=== PATIENT | male | born 1930 | race Caucasian/White ===

== ENCOUNTER 2018-04-22 15:18 | Inpatient (IN) | payer MEDICARE, MEDICAID ==
[2018-04-22] MEDS ORDERED: Sodium Chloride 0.9% 1,000 ML IV ONE (15:47)
[2018-04-22 16:23] LABS: % BASOPHILS 0.4 % (0.0-2.0); % EOSINOPHILS 0.6 % (0.0-5.0); % LYMPHOCYTES 5.1 % (20.0-50.0); % MONOCYTES 4.4 % (2.0-10.0); % NEUTROPHILS 89.5 % (40.0-80.0); BASOPHILE ABSOLUTE 0.1 Th/cumm (0-0.2); EOSINOPHILE ABSOLUTE 0.1 Th/cmm (0.1-0.4); HEMATOCRIT 36.3 % (41.0-60); LYMPHOCYTE ABSOLUTE 0.8 Th/cmm (1.5-3.0); MEAN CELL VOLUME 82.5 fl (80-99); MEAN CORPUSCULAR HEMOGLOBIN 27.4 pg (27.0-31.0); MEAN CORPUSCULAR HGB CONC 33.2 pg (28.0-36.0); MEAN PLATELET VOLUME 6.9 fl; MONOCYTE ABSOLUTE 0.7 Th/cmm (0.3-1.0); NEUTROPHILE ABSOLUTE 13.4 Th/cmm (1.8-8.0); PLATELET COUNT 519 Th/cmm (150-400); RED BLOOD COUNT 4.39 Mil/cmm (3.80-5.80); RED CELL DISTRIBUTION WIDTH 13.5 % (11.5-20.0)
[2018-04-22 16:29] LABS: WHITE BLOOD COUNT 15.1 Th/cmm (4.8-10.8)
--- NOTE | 2018-04-22 16:29 | ED Physician Chart ---
ED Chief Complaint/HPI - Patient Information Date Seen:: 04/22/18 Time Seen:: 15:45 Chief Complaint:: Hematochezia History of Present Illness:: onset x 2 days of hemtochezia, melena, and rectal pain; no report of trauma, H/ As, S/T, neck pain, cough, C/P, SOB, Abd. pain, A/N/V/D/C, fever, chills, hematemesis, or urinary s/s Allergies:: Allergies Allergy/AdvReac Type Severity Reaction Status Date / Time No Known Allergies Allergy Verified 04/22/18 15:44 Vitals:: Vital Signs - 8 hr 04/22/18 15:45 Temp 98.2 F HR 96 RR 16 BP 109/64 O2 Sat % 96 Historian:: Patient, Family Member Review:: Nurse's Note Reviewed, Old Chart Reviewed ED Review of Systems - Review of Systems General/Constitutional: No fever, No chills, No weight loss, No weakness, No diaphoresis, No edema, No loss of appetite Skin: No skin lesions, No rash, No bruising Head: No headache, No light-headedness Eyes: No loss of vision, No pain, No diplopia ENT: No earache, No nasal drainage, No sore throat, No tinnitus Neck: No neck pain, No swelling, No thyromegaly, No stiffness, No mass noted Cardio Vascular: No chest pain, No palpitations, No PND, No orthopnea, No edema Pulmonary: No SOB, No cough, No sputum, No wheezing GI: No nausea, No vomiting, No diarrhea, No pain, Melena, Hematochezia, No constipation, No hematemesis G/U: No dysuria, No frequency, No hematuria Musculoskeletal: No bone or joint pain, No back pain, No muscle pain Endocrine: No polyuria, No polydipsia Psychiatric: No prior psych history, No depression, No anxiety, No suicidal ideation, No homicidal ideation, No auditory hallucination, No visual hallucination Hematopoietic: No bruising, No lymphadenopathy Allergic/Immuno: No urticaria, No angioedema Neurological: No syncope, No focal symptoms, No weakness, No paresthesia, No headache, No seizure, No dizziness, No confusion, No vertigo ED Past Medical History - Past Medical History Obtainable: Yes Past Medical History: HTN, PUD/GERD Family History: HTN Social History: Non Smoker, No Alcohol, No Drug Use, Surgical History: None Psychiatricy History: None Medication: Reviewed ED Physical Exam - Physical Examination General/Constitutional: Awake, Well-developed, well-nourished, Alert, No distress, GCS 15, Non-toxic appearing, Ambulatory Head: Atraumatic Eyes: Lids, conjuctiva normal, PERRL, EOMI Skin: Nl inspection, No rash, No skin lesions, No ecchymosis, Well hydrated, No lymphadenopathy ENMT: External ears, nose nl, TM canals nl, Nasal exam nl, Lips, teeth, gums nl , Oropharynx nl, Tonsils nl Neck: Nontender, Full ROM w/o pain, No JVD, No nuchal rigidity, No bruit, No mass, No stridor Respiratory: Nl effort/Exclusion, Clear to Auscultation, No Wheeze/Rhonchi/Rales Cardio Vascular: RRR, No murmur, gallop, rubs, NL S1 S2, Carotid/Femoral/Distal pulses equal bilaterally GI: No tenderness/rebounding/guarding, No organomegaly, No hernia, Normal BS's, Nondistended, No mass/bruits, No McBurney tenderness Other GI comments:: + Hematochezia; no pulsatile masses; good BS : No CVA tenderness Extremities: No tenderness or effusion, Full ROM, normal strength in all extremities, No edema, Normal digits & nails Neuro/Psych: Alert/oriented, DTR's symmetric, Normal sensory exam, Normal motor strength, Judgement/insight normal, Mood normal, Normal gait, No focal deficits Misc: Normal back, No paraspinal tenderness ED Labs/Radiology/EKG Results - Lab Results Results: Reviewed - Radiology Results Comments:: NAD - EKG Interpretations EKG Time:: 16:20 Rate & Rhythm: 94; NSR Comments:: non-specific st-t changes ED Septic Shock - . Is Septic Shock (SBP<90, OR Lactate>4 mmol\L) present?: No - <6hrs of presentation: Vital Signs: Vital Signs - 8 hr 04/22/18 15:45 Temp 98.2 F HR 96 RR 16 BP 109/64 O2 Sat % 96 ED Reassessment (Disposition) - Reassessment Reassessment Condition:: Improved - Diagnosis Diagnosis:: Dx: Hematochezia; Rectal Pain; Melena; GI Bleed - Aftercare/Follow up Instructions Aftercare/Follow-Up Instructions:: Counseled pt regarding lab results/diagnosis & need follow up, Counseled pt & family regarding lab results/diagnosis & need follow up - Patient Disposition Discharge/Transfer:: Acute Care w/in this hosp Accepting Physician:: Dr. Wilson Time Called:: [id number] Time Responded:: 16:15 Admitted to:: Telemetry Spoke to:: Dr. Wilson Admitting Medical Physician:: Dr. Wilson Condition at Disposition:: Stable, Improved
[2018-04-22 17:13] LABS: INR 1.02 (0.5-1.4); PROTHROMBIN TIME (TEST) 10.6 SECONDS (9.5-11.5)
[2018-04-22] MEDS ORDERED: Morphine Sulfate 2 mg/mL 1mL Syr IVP PRN (17:42)
[2018-04-22] MEDS ORDERED: Morphine Sulfate 2 mg/mL 1mL Syr ONE (17:47)
[2018-04-22 18:00] LABS: AMYLASE SERUM 48 U/L (29-103)
[2018-04-22] MEDS: Morphine Sulfate 2 mg/mL 1mL Syr IVP PRN (18:00)
[2018-04-22 18:02] LABS: ALBUMIN 2.7 gm/dL (4.2-5.5); ALKALINE PHOSPHATASE 75 U/L (34-104); ANION GAP 15.3 (7.0-16.0); BILIRUBIN,TOTAL 0.4 mg/dL (0.3-1.0); BUN - UREA NITROGEN 17 mg/dL (7-25); CALCIUM SERUM 8.3 mg/dL (8.6-10.3); CARBON DIOXIDE 21.6 mEq/L (21.0-31.0); CHLORIDE 101 mEq/L (98-107); CHOLESTEROL 96 mg/dL (<200); CREATININE - SERUM 0.5 mg/dL (0.7-1.3); CREATININE KINASE 49 U/L (30-223); GLUCOSE 94 mg/dL (70-105); HDL -HIGH DENSITY LIPOPROTEIN 48 mg/dL (23-92); LIPASE < 3 U/L (11-82); POTASSIUM SERUM 3.9 mEq/L (3.5-5.1); SGOT 10 U/L (13-39); SGPT/ALT 10 U/L (7-52); SODIUM SERUM 134 mEq/L (136-145); TOTAL PROTEIN,SERUM 5.5 gm/dL (6.0-8.3); TRIGLYCERIDES 77 mg/dL (<150)
[2018-04-22] MEDS ORDERED: Sodium Chloride 0.9% 1,000 ML IV SCH (20:00)
[2018-04-22] MEDS: Anusol Supp RC SCH (20:57)
[2018-04-22] MEDS ORDERED: HYDROmorphone 1 mg/mL 1mL Syr IVP PRN (21:33)
[2018-04-22] MEDS: D5-0.9%NS 1,000 ML IV SCH (21:48)
[2018-04-22] MEDS: HYDROmorphone 2 mg/mL 1mL Vial IVP PRN (21:48)
[2018-04-23 00:31] VITALS: BP 139/86
[2018-04-23] MEDS: HYDROmorphone 2 mg/mL 1mL Vial IVP PRN ×4 (01:40→21:08)
[2018-04-23 07:23] LABS: HEMATOCRIT 40.9 % (41.0-60); HEMOGLOBIN 13.4 gm/dL (12-16); MEAN CORPUSCULAR HEMOGLOBIN 26.8 pg (27.0-31.0); MEAN CORPUSCULAR HGB CONC 32.7 pg (28.0-36.0); MEAN PLATELET VOLUME 7.9 fl; PLATELET COUNT 463 Th/cmm (150-400); RED BLOOD COUNT 4.99 Mil/cmm (3.80-5.80)
[2018-04-23 07:45] LABS: BAND NEUTROPHILE 16 % (0-10); BASOPHIL 0 % (0-3); EOSINOPHIL 0 % (0-5); LYMPHOCYTE 2 % (20-50); MONOCYTE 1 % (2-10); NEUTROPHILS 81 % (40-80)
[2018-04-23 07:51] LABS: ANION GAP 14.3 (7.0-16.0); BUN - UREA NITROGEN 17 mg/dL (7-25); CALCIUM SERUM 8.7 mg/dL (8.6-10.3); CHLORIDE 102 mEq/L (98-107); CREATININE - SERUM 0.5 mg/dL (0.7-1.3); GLUCOSE 117 mg/dL (70-105); POTASSIUM SERUM 3.3 mEq/L (3.5-5.1); SODIUM SERUM 136 mEq/L (136-145)
[2018-04-23] MEDS ORDERED: Anusol Supp RC SCH (09:00)
--- NOTE | 2018-04-23 09:12 | Diagnostic Imaging Report ---
CT abdomen and pelvis without intravenous contrast Indication: Abdominal pain, GI bleed Comparison: None, Technique: Axial images were obtained from the lung bases to the bilateral proximal femurs without IV contrast. Coronal reconstructions were made. total DLP: 459, CTDI10.4 FINDINGS: Bibasal infiltrates are noted. Hyperinflation of the lung bases are noted. There is a moderate-sized hiatal hernia. Assessment of the solid organs is limited due to lack of IV contrast. Exam is also limited due to body habitus. Limited assessment of the liver demonstrates no obvious focal lesions. No splenic lesions. Splenic hilar vascular calcifications are noted. There is poor is dilation of the pancreas. There is also poor visualization of the adrenal glands. Bilateral nonobstructive renal calculi are noted right greater than left the largest on the right side measuring 5 mm. No hydronephrosis. Bilateral renal cysts are noted the largest within the left kidney measuring 2.8 cm along the lower pole. Additional low-density lesions are seen to small to characterize. Sanders catheter is seen surrounding the urinary bladder with urinary bladder wall thickening. There are small pockets of gas along the left urinary bladder wall. There is a moderate-sized hiatal hernia. There is massive amount of stool throughout the colon with diffuse gaseous distention of loops of bowel. The appendix is not visualized. No free fluid or free air. Moderate atherosclerosis is noted. Anasarca is noted. Degenerative changes of the spine are noted. Chronic appearing right lower rib fractures are noted. IMPRESSION: Limited exam due to lack of IV and oral contrast and the body habitus. There is massive amount of stool throughout the colon with diffuse gaseous filled loops of bowel. Please correlate clinically for constipation and ileus. Moderate sized hiatal hernia Sanders catheter within underdistended urinary bladder. There is diffuse urinary bladder wall thickening. There are small pockets of gas are seen along the left side which may be along the less likely within the urinary bladder wall. This may be due to instrumentation, however, infectious or inflammatory process cannot be excluded. Please correlate clinically. Bilateral renal stones right greater than left. No hydronephrosis. bilateral renal cysts. Anasarca Atherosclerotic vascular disease.
[2018-04-23] MEDS: Anusol Supp RC SCH ×2 (09:16→16:41)
--- NOTE | 2018-04-23 09:19 | General Progress Note ---
Subjective - Review of Systems Service Date: 04/23/18 Events since last encounter: 04/23/[address] scan prelim noted PE:sacral ulcers, external hemorrhoids with lax sphincter, no blood in stool Need GI eval Objective - Results Result Diagrams: 04/23/18 06:30 04/23/18 06:30 Recent Labs: Laboratory Last Values WBC 22.0 Th/cmm (4.8-10.8) H* 04/23/18 06:30 RBC 4.99 Mil/cmm (3.80-5.80) 04/23/18 06:30 Hgb 13.4 gm/dL (12-16) 04/23/18 06:30 Hct 40.9 % (41.0-60) L 04/23/18 06:30 MCV 82.0 fl (80-99) 04/23/18 06:30 MCH 26.8 pg (27.0-31.0) L 04/23/18 06:30 MCHC Differential 32.7 pg (28.0-36.0) 04/23/18 06:30 RDW 14.0 % (11.5-20.0) 04/23/18 06:30 Plt Count 463 Th/cmm (150-400) H 04/23/18 06:30 MPV 7.9 fl 04/23/18 06:30 Add Manual Diff YES 04/23/18 06:30 Neutrophils % 89.5 % (40.0-80.0) H 04/22/18 16:20 Band Neutrophils % 16 % (0-10) H 04/23/18 06:30 Lymphocytes % 5.1 % (20.0-50.0) L 04/22/18 16:20 Monocytes % 4.4 % (2.0-10.0) 04/22/18 16:20 Eosinophils % 0.6 % (0.0-5.0) 04/22/18 16:20 Basophils % 0.4 % (0.0-2.0) 04/22/18 16:20 Neutrophils (Manual) 81 % (40-80) H 04/23/18 06:30 Lymphocytes 2 % (20-50) L 04/23/18 06:30 Monocytes 1 % (2-10) L 04/23/18 06:30 Eosinophils 0 % (0-5) 04/23/18 06:30 Basophils 0 % (0-3) 04/23/18 06:30 PT 10.6 SECONDS (9.5-11.5) 04/22/18 16:20 INR 1.02 (0.5-1.4) 04/22/18 16:20 PTT (Actin FS) 30.5 SECONDS (26.0-38.0) 04/23/18 06:30 Sodium 136 mEq/L (136-145) 04/23/18 06:30 Potassium 3.3 mEq/L (3.5-5.1) L 04/23/18 06:30 Chloride 102 mEq/L (98-107) 04/23/18 06:30 Carbon Dioxide 23.0 mEq/L (21.0-31.0) 04/23/18 06:30 Anion Gap 14.3 (7.0-16.0) 04/23/18 06:30 BUN 17 mg/dL (7-25) 04/23/18 06:30 Creatinine 0.5 mg/dL (0.7-1.3) L 04/23/18 06:30 Est GFR ( Amer) TNP 04/23/18 06:30 Est GFR (Non-Af Amer) TNP 04/23/18 06:30 BUN/Creatinine Ratio 34.0 04/23/18 06:30 Glucose 117 mg/dL (70-105) H 04/23/18 06:30 Whole Bld Lactic Acid 0.61 mmol/L (0.60-1.99) 04/22/18 19:30 Calcium 8.7 mg/dL (8.6-10.3) 04/23/18 06:30 Total Bilirubin 0.4 mg/dL (0.3-1.0) 04/22/18 16:20 AST 10 U/L (13-39) L 04/22/18 16:20 ALT 10 U/L (7-52) 04/22/18 16:20 Alkaline Phosphatase 75 U/L (34-104) 04/22/18 16:20 Creatine Kinase 49 U/L (30-223) 04/22/18 16:20 Troponin I 0.01 ng/mL (0.01-0.05) 04/22/18 16:20 B-Natriuretic Peptide 75.5 pg/mL (5.0-100.0) 04/22/18 16:20 Total Protein 5.5 gm/dL (6.0-8.3) L 04/22/18 16:20 Albumin 2.7 gm/dL (4.2-5.5) L 04/22/18 16:20 Globulin 2.8 gm/dL 04/22/18 16:20 Albumin/Globulin Ratio 1.0 (1.0-1.8) 04/22/18 16:20 Triglycerides 77 mg/dL (<150) 04/22/18 16:20 Cholesterol 96 mg/dL (<200) 04/22/18 16:20 LDL Cholesterol Direct 42 mg/dL (75-193) L 04/22/18 16:20 HDL Cholesterol 48 mg/dL (23-92) 04/22/18 16:20 Amylase 48 U/L (29-103) 04/22/18 16:20 Lipase < 3 U/L (11-82) L 04/22/18 16:20 - Physical Exam Vitals and I&O: Vital Signs Temp 97.4 F 04/23/18 08:24 Pulse 101 04/23/18 08:24 Resp 18 04/23/18 08:24 BP 127/71 04/23/18 08:24 Pulse Ox 98 04/23/18 08:24 Intake & Output 04/22/18 04/23/18 04/23/18 18:59 06:59 18:59 Intake Total 0 150 Output Total 0 450 Balance 0 -300 Weight (lbs) 61.235 kg 58.967 kg Intake: Intake, IV Amount 0 Sodium Chloride 0.9% 1, 0 000 ml @ 100 mls/hr IV . Q10H [facility] Rx#:[id number] Sodium Chloride 0.9% 1, 0 000 ml @ 100 mls/hr IV . Q10H [facility] Rx#:[id number] Vancomycin HCl 1 gm In 0 Sodium Chloride 0.9% 250 ml @ 165 mls/hr IV Q24H [facility] Rx#:[id number] Oral 0 150 Output: Urine 0 450 Other: # Bowel Movements 5 Stool Characteristics Soft Weight Source Estimated Bedscale Active Medications: Current Medications Hydromorphone HCl (Dilaudid) 1 mg IVP Q4HR PRN PRN Reason: Pain (Moderate) Stop: 01/19/19 21:32 Hydromorphone HCl (Dilaudid) 2 mg IVP Q4HR PRN PRN Reason: Pain (Severe) Stop: 06/21/18 21:34 Last Admin: 04/23/18 09:16 Dose: 2 mg Dextrose/Sodium Chloride (D5-0.9%Ns) 1,000 mls @ 50 mls/hr IV .Q20H [facility] Stop: 06/21/18 21:36 Last Admin: 04/22/18 21:48 Dose: 50 mls/hr Vancomycin HCl 1.25 gm/ Sodium (Chloride) 250 mls @ 165 mls/hr IV Q24H [facility] Stop: 06/22/18 08:59 Potassium Chloride 20 meq/ (Sodium Chloride) 260 mls @ 130 mls/hr IV X1 [facility] Stop: 04/23/18 10:49 Last Admin: 04/23/18 09:13 Dose: 130 mls/hr Miscellaneous (Vancomycin Iv Per Pharmacy) 1 ea MC PRN PRN PRN Reason: PROTOCOL Stop: 06/21/18 17:03 Morphine Sulfate (Morphine) 1 mg IVP Q4HR PRN PRN Reason: Pain (Moderate) 4-7 Stop: 06/21/18 17:41 Morphine Sulfate (Morphine) 2 mg IVP Q4HR PRN PRN Reason: Pain (Severe) 8-10 Stop: 06/21/18 17:43 Last Admin: 04/22/18 18:00 Dose: 2 mg Ondansetron HCl (Zofran) 4 mg IV Q6H PRN PRN Reason: Nausea / Vomiting Stop: 06/21/18 17:46 Last Admin: 04/23/18 09:16 Dose: 4 mg Starch (Anusol) 1 sup RC BID [facility] Stop: 06/21/18 20:59 Last Admin: 04/23/18 09:16 Dose: 1 sup Assessment/Plan - Problem List Patient Problems: All Active Problems RECTAL PAIN (Acute)
[2018-04-23] MEDS: POLYETHYLENE GLYCOL 3350 17 GM PACK PO SCH ×2 (10:43→16:41)
[2018-04-23] MEDS: Morphine Sulfate 2 mg/mL 1mL Syr IVP PRN (11:02)
--- NOTE | 2018-04-23 12:00 | Diagnostic Imaging Report ---
Bilateral lower extremity DVT study HISTORY: Pain COMPARISON: None Technique: Longitudinal and transverse sonographic images of the bilateral lower extremity veins were obtained with doppler analysis. FINDINGS: There is normal compressibility, augmentation and phasicity of the bilateral common femoral, superficial femoral, popliteal, and posterior tibial veins. No thrombus is visualized. IMPRESSION: No evidence of thrombus within the bilateral lower extremity veins.
--- NOTE | 2018-04-23 12:06 | Diagnostic Imaging Report ---
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 FINDINGS: Exam of the right side demonstrates triphasic flow extending from the right common femoral to the right tibialis anterior artery. There is biphasic flow in the right tibialis posterior and right dorsalis pedis arteries. Mild generalized atherosclerosis is noted. Due to patient's right PICC line, right brachial pressure and right ankle-brachial and were not able to be obtained. Exam of the left side demonstrates triphasic flow within the left common femoral artery and left superficial femoral artery. Biphasic and monophasic waveforms are seen more distally with decreased velocity and markedly dampened waveforms of the anterior tibialis and dorsalis pedis artery. Severe atherosclerosis is seen distally. Left DAMIEN were not able to obtain after multiple attempts. IMPRESSION: Severe left distal lower extremity atherosclerotic vascular disease with monophasic waveforms and decreased velocities. If indicated follow-up CT angiography of the lower extremity may be obtained for further assessment. Mild atherosclerosis on the right side.
--- NOTE | 2018-04-23 13:34 | Consultation ---
DATE OF CONSULTATION: 04/23/2018 INPATIENT GASTROINTESTINAL CONSULTATION CONSULTING PHYSICIAN: Dr. Wilson. REASON FOR CONSULTATION: Hematochezia. HISTORY OF PRESENT ILLNESS: The patient is an 88-year-old male with past medical history significant for hypertension and GERD, who comes into the hospital with 2 days of intermittent hematochezia. The patient reports that he has noted some red blood in his stool over the past 2 days and this alarmed him and thus he sought care in the Emergency Room. He denies any abdominal pain. He does report having a colonoscopy before, but he thinks this was many years ago and cannot remember exactly what the results were. He also reports feeling constipated at home and that he knows he has hemorrhoids. However, it should be noted that since his admission to the hospital, he has been having loose stool with no blood in it as per nursing staff. PAST MEDICAL HISTORY: Hypertension and GERD. PAST SURGICAL HISTORY: The patient denies any abdominal surgery. FAMILY HISTORY: Noncontributory. SOCIAL HISTORY: The patient does not smoke, drink or use illicit drugs. ALLERGIES: No known drug allergies. REVIEW OF SYSTEMS: A 12-point review of systems was performed with the patient and is negative other than the pertinent positives mentioned in the history of present illness. CURRENT MEDICATIONS: Include Dilaudid, vancomycin, morphine and Zofran. PHYSICAL EXAMINATION: VITAL SIGNS: Blood pressure is 127/71, pulse 101 beats per minute, temperature 97.4, oxygenation 98%. GENERAL: The patient is sitting upright in bed, alert and oriented x 3, no apparent distress. HEAD, EARS, EYES, NOSE AND THROAT: Normocephalic and atraumatic appearing head. Pupils are equal and reactive to light. Extraocular muscles are intact. Moist mucous membranes. NECK: Supple. No JVD, thyromegaly or lymphadenopathy. CHEST: Clear to auscultation bilaterally. CARDIOVASCULAR: S1 and S2 are present, regular rate and rhythm. ABDOMEN: Soft, nontender, no guarding, no rebound. No fluid distention. EXTREMITIES: No pitting edema. Pulses are not present. SKIN: There is no obvious jaundice. LABORATORY DATA: White blood cell count is 22, hemoglobin 13.4, platelet count is 463. INR is 1.02. Sodium 136, BUN 17, creatinine 0.5. Total bilirubin 0.4, AST 10, ALT 10, lipase less than 3. IMAGING: Abdomen and pelvis CT scan was performed without contrast, shows massive amount of stool throughout the colon with diffuse gaseous filled loops of bowel concerning for ileus and constipation, moderate size hiatal hernia. There is a Sanders catheter in place. IMPRESSION: This is an 88-year-old male with history of hypertension and gastroesophageal reflux disease, admitted to the hospital with intermittent hematochezia over the past several days, found to have constipation and ileus on CT imaging and external hemorrhoids. 1. Hematochezia. 2. Constipation. 3. Ileus problem. 4. External hemorrhoids on exam. DISCUSSION: I think the most likely etiology of the patient's bleeding is his hemorrhoid disease, which is obvious on physical exam. He does have a large amount of stool throughout the colon and likely this is contributing to the hemorrhoid disease. A colonoscopy is not unreasonable here to rule out other forms of rectal bleeding such as rectal cancer or colonic ulceration or polyps and I discussed this with the patient. We need to rule out C. diff before we do a colonoscopy; however, given that his white blood cell count is elevated and he is now having diarrhea and given the holiday schedule, ____ that a colonoscopy will be able to be scheduled not emergently until Saturday. RECOMMENDATIONS: 1. We will give the patient tap water enemas to try to clear some of the stool out from his colon as well as a strong bowel regimen. 2. Rule out C. diff. 3. Evaluation of the patient's leukocytosis for other forms of sepsis as per Dr. Wilson. 4. We can perform a colonoscopy here in the hospital, but this likely have to be on Saturday unless the patient has severe bleeding; otherwise, we can do this as an outpatient which is also not unreasonable. We will continue to follow the patient. Thank you for allowing us to participate in his care. Please call with any further questions. [facility]# [id number]
[2018-04-23] MEDS: Venelex 60gm Tube TP SCH (14:29)
--- NOTE | 2018-04-23 17:02 | History & Physical ---
ADMIT DATE: 04/22/2018 HISTORY OF PRESENT ILLNESS: This patient is very well known to me, elderly male patient. The patient is known to have history of multiple problems including history of hypertension, history of severe peripheral vascular disease, history of gangrene of the foot, history of peptic ulcer disease, history of GERD, history of COPD, complaining of intermittent hematochezia and melena, seen by Dr. Hernandez and was sent to the ER. The patient was admitted for rectal bleeding. The patient complained of no shortness of breath, no chest pain, but does complain of severe pain in both legs, worse on the left and also has blood in the stool and melenic stools as well. The patient has a history of hemorrhoids as well. PHYSICAL EXAMINATION: GENERAL: The patient is alert, oriented, emaciated male patient. VITAL SIGNS: As noted in chart. HEAD: Normal. ENT: Normal. LUNGS: Bilateral rales. Decreased breath sounds. CARDIOVASCULAR SYSTEM: S1, S2 heard. ABDOMEN: Soft, bilateral leg tenderness as well as some dry gangrene and the patient has had angioplasty of the leg before. DIAGNOSES: The patient was admitted for hematochezia, rectal pain, melena, lower gastrointestinal bleeding, peripheral vascular disease, status post angioplasty, history of hypertension, history of gastroesophageal reflux disease, history of peptic ulcer disease, and history of gangrene in the past. PLAN: The patient is being admitted. I will call the vascular surgeon as well as GI doctor. I will follow the patient. JOB# [id number]
[2018-04-24] MEDS: D5-0.9%NS 1,000 ML IV SCH (02:32)
[2018-04-24] MEDS: HYDROmorphone 2 mg/mL 1mL Vial IVP PRN ×3 (03:00→11:15)
[2018-04-24] MEDS: Ipratropium Neb 0.5 mg/2.5 mL UD HHN PRN ×2 (07:01→13:30)
--- NOTE | 2018-04-24 08:09 | GI Progress Note ---
Subjective - Review of Systems Service Date: 04/24/18 Subjective: No blood in stool, but has rectal pain and loose stool Objective - Results Result Diagrams: 04/23/18 06:30 04/23/18 06:30 Recent Labs: Laboratory Last Values WBC 22.0 Th/cmm (4.8-10.8) H* 04/23/18 06:30 RBC 4.99 Mil/cmm (3.80-5.80) 04/23/18 06:30 Hgb 13.4 gm/dL (12-16) 04/23/18 06:30 Hct 40.9 % (41.0-60) L 04/23/18 06:30 MCV 82.0 fl (80-99) 04/23/18 06:30 MCH 26.8 pg (27.0-31.0) L 04/23/18 06:30 MCHC Differential 32.7 pg (28.0-36.0) 04/23/18 06:30 RDW 14.0 % (11.5-20.0) 04/23/18 06:30 Plt Count 463 Th/cmm (150-400) H 04/23/18 06:30 MPV 7.9 fl 04/23/18 06:30 Add Manual Diff YES 04/23/18 06:30 Neutrophils % 89.5 % (40.0-80.0) H 04/22/18 16:20 Band Neutrophils % 16 % (0-10) H 04/23/18 06:30 Lymphocytes % 5.1 % (20.0-50.0) L 04/22/18 16:20 Monocytes % 4.4 % (2.0-10.0) 04/22/18 16:20 Eosinophils % 0.6 % (0.0-5.0) 04/22/18 16:20 Basophils % 0.4 % (0.0-2.0) 04/22/18 16:20 Neutrophils (Manual) 81 % (40-80) H 04/23/18 06:30 Lymphocytes 2 % (20-50) L 04/23/18 06:30 Monocytes 1 % (2-10) L 04/23/18 06:30 Eosinophils 0 % (0-5) 04/23/18 06:30 Basophils 0 % (0-3) 04/23/18 06:30 PT 10.6 SECONDS (9.5-11.5) 04/22/18 16:20 INR 1.02 (0.5-1.4) 04/22/18 16:20 PTT (Actin FS) 30.5 SECONDS (26.0-38.0) 04/23/18 06:30 Sodium 136 mEq/L (136-145) 04/23/18 06:30 Potassium 3.3 mEq/L (3.5-5.1) L 04/23/18 06:30 Chloride 102 mEq/L (98-107) 04/23/18 06:30 Carbon Dioxide 23.0 mEq/L (21.0-31.0) 04/23/18 06:30 Anion Gap 14.3 (7.0-16.0) 04/23/18 06:30 BUN 17 mg/dL (7-25) 04/23/18 06:30 Creatinine 0.5 mg/dL (0.7-1.3) L 04/23/18 06:30 Est GFR ( Amer) TNP 04/23/18 06:30 Est GFR (Non-Af Amer) TNP 04/23/18 06:30 BUN/Creatinine Ratio 34.0 04/23/18 06:30 Glucose 117 mg/dL (70-105) H 04/23/18 06:30 Whole Bld Lactic Acid 0.61 mmol/L (0.60-1.99) 04/22/18 19:30 Calcium 8.7 mg/dL (8.6-10.3) 04/23/18 06:30 Total Bilirubin 0.4 mg/dL (0.3-1.0) 04/22/18 16:20 AST 10 U/L (13-39) L 04/22/18 16:20 ALT 10 U/L (7-52) 04/22/18 16:20 Alkaline Phosphatase 75 U/L (34-104) 04/22/18 16:20 Creatine Kinase 49 U/L (30-223) 04/22/18 16:20 Troponin I 0.01 ng/mL (0.01-0.05) 04/22/18 16:20 B-Natriuretic Peptide 75.5 pg/mL (5.0-100.0) 04/22/18 16:20 Total Protein 5.5 gm/dL (6.0-8.3) L 04/22/18 16:20 Albumin 2.7 gm/dL (4.2-5.5) L 04/22/18 16:20 Globulin 2.8 gm/dL 04/22/18 16:20 Albumin/Globulin Ratio 1.0 (1.0-1.8) 04/22/18 16:20 Triglycerides 77 mg/dL (<150) 04/22/18 16:20 Cholesterol 96 mg/dL (<200) 04/22/18 16:20 LDL Cholesterol Direct 42 mg/dL (75-193) L 04/22/18 16:20 HDL Cholesterol 48 mg/dL (23-92) 04/22/18 16:20 Amylase 48 U/L (29-103) 04/22/18 16:20 Lipase < 3 U/L (11-82) L 04/22/18 16:20 - Physical Exam Vitals and I&O: Vital Signs Temp 97 F 04/24/18 04:00 Pulse 110 04/24/18 07:02 Resp 18 04/24/18 07:02 BP 122/82 04/24/18 04:00 Pulse Ox 93 04/24/18 07:02 Intake & Output 04/23/18 04/24/18 04/24/18 18:59 06:59 18:59 Intake Total 1000 400 Output Total 200 Balance 1000 200 Weight (lbs) 61.235 kg Intake: Intake, IV Amount 1000 D5-0.9%Ns 1,000 ml @ 50 1000 mls/hr IV .Q20H [facility] Rx#: [id number] Oral 400 Output: Urine 200 Other: # Bowel Movements 3 Stool Characteristics Soft Soft Weight Source Bedscale Active Medications: Current Medications [place] Oil/[place] Balsam/Trypsin (Venelex) 1 appl TP DAILY [facility] Stop: 06/22/18 12:59 Last Admin: 04/23/18 14:29 Dose: 1 appl Hydrocortisone (Anusol-Hc) 25 mg RC DAILY [facility] Stop: 06/23/18 08:59 Hydrocortisone (Hydrocortisone 1%) 1 appl TP BID [facility] Stop: 06/23/18 08:59 Hydromorphone HCl (Dilaudid) 1 mg IVP Q4HR PRN PRN Reason: Pain (Moderate) Stop: 06/21/18 21:32 Last Admin: 04/23/18 23:57 Dose: 1 mg Hydromorphone HCl (Dilaudid) 2 mg IVP Q4HR PRN PRN Reason: Pain (Severe) Stop: 06/21/18 21:34 Last Admin: 04/24/18 06:54 Dose: 2 mg Dextrose/Sodium Chloride (D5-0.9%Ns) 1,000 mls @ 50 mls/hr IV .Q20H [facility] Stop: 06/21/18 21:36 Last Admin: 04/24/18 02:32 Dose: 50 mls/hr Vancomycin HCl 1.25 gm/ Sodium (Chloride) 250 mls @ 165 mls/hr IV Q24H [facility] Stop: 06/22/18 08:59 Last Admin: 04/23/18 09:17 Dose: 165 mls/hr Ipratropium [place] (Atrovent Neb 0.5mg/2.5ml) 0.5 mg HHN Q4HRT PRN PRN Reason: Shortness of Breath or Wheeze Stop: 05/03/18 15:40 Last Admin: 04/24/18 07:01 Dose: 0.5 mg Miscellaneous (Vancomycin Iv Per Pharmacy) 1 ea MC PRN PRN PRN Reason: PROTOCOL Stop: 06/21/18 17:03 Morphine Sulfate (Morphine) 1 mg IVP Q4HR PRN PRN Reason: Pain (Moderate) 4-7 Stop: 06/21/18 17:41 Morphine Sulfate (Morphine) 2 mg IVP Q4HR PRN PRN Reason: Pain (Severe) 8-10 Stop: 06/21/18 17:43 Last Admin: 04/23/18 11:02 Dose: 2 mg Ondansetron HCl (Zofran) 4 mg IV Q6H PRN PRN Reason: Nausea / Vomiting Stop: 06/21/18 17:46 Last Admin: 04/24/18 02:39 Dose: 4 mg Polyethylene Glycol (Miralax) 17 gm PO BID [facility] Stop: 06/22/18 09:29 Last Admin: 04/23/18 16:41 Dose: 17 gm Starch (Anusol) 1 sup RC BID [facility] Stop: 06/21/18 20:59 Last Admin: 04/23/18 16:41 Dose: 1 sup General: Alert HEENT: Atraumatic Cardiovascular: Regular rate Abdomen: Bowel sounds, Soft, no Tender, no Hepatomegaly, no Distended, no Rebound, no Mass, no Guarding Psych/Mental Status: Mental status NL Assessment/Plan - Problem List Patient Problems: All Active Problems RECTAL PAIN (Acute) - Assessment Assessment: # Hematochezia # Fecal impaction # Diarrhea # Hemorrhoids Hematochezia may have been hemorrhoidal, although cannot rule out GI malignancy without endoscopy. Pt has painful hemorrhoids and fecal impaction. We can try steroid spp and steroid cream for now. Given leukocytosis, will need to rule out CDiff, pending. Plan: - colonoscopy should be done. This can be done here on Saturday, or as outpt if the pt is stable for dc - rule out CDiff - KUB to see if there is still impaction - full liquid diet - steroid spp daily, and bid cream - trend hgb, transfuse to keep > 7
[2018-04-24] MEDS: POLYETHYLENE GLYCOL 3350 17 GM PACK PO SCH ×2 (08:33→17:15)
[2018-04-24] MEDS: Morphine Sulfate 2 mg/mL 1mL Syr IVP PRN (08:57)
[2018-04-24] MEDS: Anusol Supp RC SCH (09:00)
[2018-04-24] MEDS: Venelex 60gm Tube TP SCH (09:01)
--- NOTE | 2018-04-24 09:23 | Diagnostic Imaging Report ---
KUB single view HISTORY: Constipation COMPARISON: CT abdomen and pelvis on 04/22/2018 FINDINGS: Moderate stool is noted with overall decrease in stool content when compared to prior CT exam. Gas-filled loops of bowel are noted. IMPRESSION: Moderate amount of stool greatest along the left lower quadrant. There has been decrease in stool content when compared to prior exam. Generalized gas-filled loops of bowel are again noted.
--- NOTE | 2018-04-24 09:52 | General Progress Note ---
Subjective - Review of Systems Events since last encounter: 04/24/18 GI note read and agree with plan Objective - Results Result Diagrams: 04/23/18 06:30 04/23/18 06:30 Recent Labs: Laboratory Last Values WBC 22.0 Th/cmm (4.8-10.8) H* 04/23/18 06:30 RBC 4.99 Mil/cmm (3.80-5.80) 04/23/18 06:30 Hgb 13.4 gm/dL (12-16) 04/23/18 06:30 Hct 40.9 % (41.0-60) L 04/23/18 06:30 MCV 82.0 fl (80-99) 04/23/18 06:30 MCH 26.8 pg (27.0-31.0) L 04/23/18 06:30 MCHC Differential 32.7 pg (28.0-36.0) 04/23/18 06:30 RDW 14.0 % (11.5-20.0) 04/23/18 06:30 Plt Count 463 Th/cmm (150-400) H 04/23/18 06:30 MPV 7.9 fl 04/23/18 06:30 Add Manual Diff YES 04/23/18 06:30 Neutrophils % 89.5 % (40.0-80.0) H 04/22/18 16:20 Band Neutrophils % 16 % (0-10) H 04/23/18 06:30 Lymphocytes % 5.1 % (20.0-50.0) L 04/22/18 16:20 Monocytes % 4.4 % (2.0-10.0) 04/22/18 16:20 Eosinophils % 0.6 % (0.0-5.0) 04/22/18 16:20 Basophils % 0.4 % (0.0-2.0) 04/22/18 16:20 Neutrophils (Manual) 81 % (40-80) H 04/23/18 06:30 Lymphocytes 2 % (20-50) L 04/23/18 06:30 Monocytes 1 % (2-10) L 04/23/18 06:30 Eosinophils 0 % (0-5) 04/23/18 06:30 Basophils 0 % (0-3) 04/23/18 06:30 PT 10.6 SECONDS (9.5-11.5) 04/22/18 16:20 INR 1.02 (0.5-1.4) 04/22/18 16:20 PTT (Actin FS) 30.5 SECONDS (26.0-38.0) 04/23/18 06:30 Sodium 136 mEq/L (136-145) 04/23/18 06:30 Potassium 3.3 mEq/L (3.5-5.1) L 04/23/18 06:30 Chloride 102 mEq/L (98-107) 04/23/18 06:30 Carbon Dioxide 23.0 mEq/L (21.0-31.0) 04/23/18 06:30 Anion Gap 14.3 (7.0-16.0) 04/23/18 06:30 BUN 17 mg/dL (7-25) 04/23/18 06:30 Creatinine 0.5 mg/dL (0.7-1.3) L 04/23/18 06:30 Est GFR ( Amer) TNP 04/23/18 06:30 Est GFR (Non-Af Amer) TNP 04/23/18 06:30 BUN/Creatinine Ratio 34.0 04/23/18 06:30 Glucose 117 mg/dL (70-105) H 04/23/18 06:30 Whole Bld Lactic Acid 0.61 mmol/L (0.60-1.99) 04/22/18 19:30 Calcium 8.7 mg/dL (8.6-10.3) 04/23/18 06:30 Total Bilirubin 0.4 mg/dL (0.3-1.0) 04/22/18 16:20 AST 10 U/L (13-39) L 04/22/18 16:20 ALT 10 U/L (7-52) 04/22/18 16:20 Alkaline Phosphatase 75 U/L (34-104) 04/22/18 16:20 Creatine Kinase 49 U/L (30-223) 04/22/18 16:20 Troponin I 0.01 ng/mL (0.01-0.05) 04/22/18 16:20 B-Natriuretic Peptide 75.5 pg/mL (5.0-100.0) 04/22/18 16:20 Total Protein 5.5 gm/dL (6.0-8.3) L 04/22/18 16:20 Albumin 2.7 gm/dL (4.2-5.5) L 04/22/18 16:20 Globulin 2.8 gm/dL 04/22/18 16:20 Albumin/Globulin Ratio 1.0 (1.0-1.8) 04/22/18 16:20 Triglycerides 77 mg/dL (<150) 04/22/18 16:20 Cholesterol 96 mg/dL (<200) 04/22/18 16:20 LDL Cholesterol Direct 42 mg/dL (75-193) L 04/22/18 16:20 HDL Cholesterol 48 mg/dL (23-92) 04/22/18 16:20 Amylase 48 U/L (29-103) 04/22/18 16:20 Lipase < 3 U/L (11-82) L 04/22/18 16:20 - Physical Exam Vitals and I&O: Vital Signs Temp 98.1 F 04/24/18 08:31 Pulse 83 04/24/18 08:31 Resp 18 04/24/18 08:31 BP 150/78 04/24/18 08:31 Pulse Ox 97 04/24/18 08:31 Intake & Output 04/23/18 04/24/18 04/24/18 18:59 06:59 18:59 Intake Total 1250 400 Output Total 200 Balance 1250 200 Weight (lbs) 61.235 kg Intake: Intake, IV Amount 1250 D5-0.9%Ns 1,000 ml @ 50 1000 mls/hr IV .Q20H [facility] Rx#: [id number] Vancomycin HCl 1.25 gm In 250 Sodium Chloride 0.9% 250 ml @ 165 mls/hr IV Q24H [facility] Rx#:[id number] Oral 400 Output: Urine 200 Other: # Bowel Movements 3 Stool Characteristics Soft Soft Weight Source Bedscale Active Medications: Current Medications [place] Oil/[place] Balsam/Trypsin (Venelex) 1 appl TP DAILY [facility] Stop: 06/22/18 12:59 Last Admin: 04/24/18 09:01 Dose: 1 appl Hydrocortisone (Anusol-Hc) 25 mg RC DAILY [facility] Stop: 06/23/18 08:59 Hydrocortisone (Hydrocortisone 1%) 1 appl TP BID [facility] Stop: 06/23/18 08:59 Last Admin: 04/24/18 09:00 Dose: 1 appl Hydromorphone HCl (Dilaudid) 1 mg IVP Q4HR PRN PRN Reason: Pain (Moderate) Stop: 06/21/18 21:32 Last Admin: 04/23/18 23:57 Dose: 1 mg Hydromorphone HCl (Dilaudid) 2 mg IVP Q4HR PRN PRN Reason: Pain (Severe) Stop: 06/21/18 21:34 Last Admin: 04/24/18 06:54 Dose: 2 mg Dextrose/Sodium Chloride (D5-0.9%Ns) 1,000 mls @ 50 mls/hr IV .Q20H [facility] Stop: 06/21/18 21:36 Last Admin: 04/24/18 02:32 Dose: 50 mls/hr Vancomycin HCl 1.25 gm/ Sodium (Chloride) 250 mls @ 165 mls/hr IV Q24H [facility] Stop: 06/22/18 08:59 Last Admin: 04/24/18 09:48 Dose: 165 mls/hr Ipratropium [place] (Atrovent Neb 0.5mg/2.5ml) 0.5 mg HHN Q4HRT PRN PRN Reason: Shortness of Breath or Wheeze Stop: 05/03/18 15:40 Last Admin: 04/24/18 07:01 Dose: 0.5 mg Miscellaneous (Vancomycin Iv Per Pharmacy) 1 ea [facility] PRN PRN PRN Reason: PROTOCOL Stop: 06/21/18 17:03 Morphine Sulfate (Morphine) 1 mg IVP Q4HR PRN PRN Reason: Pain (Moderate) 4-7 Stop: 06/21/18 17:41 Morphine Sulfate (Morphine) 2 mg IVP Q4HR PRN PRN Reason: Pain (Severe) 8-10 Stop: 06/21/18 17:43 Last Admin: 04/24/18 08:57 Dose: 2 mg Ondansetron HCl (Zofran) 4 mg IV Q6H PRN PRN Reason: Nausea / Vomiting Stop: 06/21/18 17:46 Last Admin: 04/24/18 02:39 Dose: 4 mg Polyethylene Glycol (Miralax) 17 gm PO BID [facility] Stop: 06/22/18 09:29 Last Admin: 04/24/18 08:33 Dose: Not Given Starch (Anusol) 1 sup RC BID [facility] Stop: 06/21/18 20:59 Last Admin: 04/24/18 09:00 Dose: 1 sup General: Alert HEENT: Atraumatic Cardiovascular: Regular rate Abdomen: Bowel sounds, Soft, no Tender, no Hepatomegaly, no Distended, no Rebound, no Mass, no Guarding Psych/Mental Status: Mental status NL Assessment/Plan - Problem List Patient Problems: All Active Problems RECTAL PAIN (Acute) Nutritional Asmnt/Malnutr-PDOC - Dietary Evaluation Malnutrition Findings (Please click <Entered> for more info): Nutritional Asmnt/Malnutrition Start: 04/23/18 15: 18 Text: Status: Complete Freq: Protocol: Document 04/23/18 15:19 ELSIEFERNANDO (Rec: 04/23/18 16:00 CHANDAN [email or web address]) Nutritional Asmnt/Malnutrition Patient General Information Nutritional Screening High Risk Diagnosis rectal bleeding Pertinent Medical Hx/Surgical Hx HTN, PUD/GERD, sacral ulcers ( per wound care note) Subjective Information RD spoke w/ pt's family in room d/t pt's nepalese speaking . Family states pt likes oatmeal, chicken soup, banana, and coffee, but dislikes bread. Family also states pt currently has little to no appetite. Current Diet Order/ Nutrition Support low Na 2 gm, mech soft chopped Pertinent Medications D5-0.9%Ns, vancomycin, zofran, miralax Pertinent Labs 04/23: Na 136, K 3.3, Cr 0.5, glucose 117, Ca 8.7 04/22: Na 134, K 3.9, Cr 0.5, glucose 94, Ca 8.3, Alb 2.7 Nutritional Hx/Data Height 1.68 m Height (Calculated Centimeters) 167.6 Current Weight (lbs) 58.967 kg Weight (Calculated Kilograms) 59.0 Weight (Calculated Grams) 64265.0 [place] Body Weight 142 lb Body Mass Index (BMI) 20.9 Weight Status Approriate GI Symptoms GI Symptoms Diarrhea Last BM 04/23 x 5 Difficult in: None Food Allergies No Skin Integrity/Comment: rahat 11, 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 Query Text:Check all the applicable criteria. A minimum of two criteria are recommended for diagnosis of either severe or non-severe malnutrition. Malnutrition Related to Morbid Obesity Malnutrition related to morbid obesity No Intervention/Recommendation Comments 1. Continue with low Na 2 gm, mech soft chopped diet as ordered, which will meet 100% of pt's higher estimated kcal and protein needs 2. Consider adding nutrition supplement if pt continues to have low appetite or low PO intake 2. Monitor PO intake, wt, labs and skin integrity 3. F/U as high risk in 2-3 days, 04/25- Expected Outcomes/Goals Expected Outcomes/Goals 1. PO intake to meet at least 75% of all meals 2. Wt stability, skin integrity to improve, and nutrition related labs to approach normal limits Reviewed by Matilde Griffiths RD
[2018-04-24 14:34] LABS: HEMATOCRIT 53.3 % (41.0-60); HEMOGLOBIN 17.6 gm/dL (12-16); MEAN CELL VOLUME 82.8 fl (80-99); MEAN CORPUSCULAR HEMOGLOBIN 27.3 pg (27.0-31.0); MEAN PLATELET VOLUME 7.2 fl; PLATELET COUNT 356 Th/cmm (150-400); RED BLOOD COUNT 6.43 Mil/cmm (3.80-5.80); RED CELL DISTRIBUTION WIDTH 13.8 % (11.5-20.0)
[2018-04-24 14:52] LABS: WHITE BLOOD COUNT 46.6 Th/cmm (4.8-10.8)
[2018-04-24 15:08] LABS: ANION GAP 26.5 (7.0-16.0); BUN - UREA NITROGEN 31 mg/dL (7-25); CHLORIDE 99 mEq/L (98-107); CREATININE - SERUM 1.5 mg/dL (0.7-1.3); GLUCOSE 275 mg/dL (70-105); POTASSIUM SERUM 4.5 mEq/L (3.5-5.1); SODIUM SERUM 131 mEq/L (136-145)
[2018-04-24 15:10] LABS: BAND NEUTROPHILE 1 % (0-10); EOSINOPHIL 1 % (0-5); LYMPHOCYTE 5 % (20-50); MONOCYTE 3 % (2-10); NEUTROPHILS 90 % (40-80)
[2018-04-24] MEDS ORDERED: D5-0.45NS 1,000 ML IV SCH (16:15)
[2018-04-24] MEDS ORDERED: Vancomycin HCL 250 mg /10mL UDC PO SCH (18:00)
[2018-04-24] MEDS ORDERED: Norepinephrine 4 mg/4mL Vial IV ONE (19:20)
[2018-04-24] MEDS ORDERED: Sodium Bicarbonate 8.4% 50mEq PFS IVP ONE ×2 (19:30→19:37)
[2018-04-24] MEDS ORDERED: Chlorhexidine Gluconate 0.12% 15mL Mouthwash MM SCH (20:00)
[2018-04-24 20:03] LABS: ALLEN TEST Positive
--- NOTE | 2018-04-24 20:16 | Consultation ---
DATE OF CONSULTATION: 04/24/[address] Wilson. Thank you very much Dr. Wilson for this consultation. HISTORY OF PRESENT ILLNESS: The patient is known to me from last admission in [facility]. The patient apparently was admitted a couple of times, according to family different hospitals in between, came back here with abdominal pain and apparently the patient was developing hypoxemia, earlier placed on oxygen, not improved, then blood pressure started dropping. The patient required to be intubated and sedated. The patient underwent a code blue, resuscitated, was brought back, now he is on dopamine drip. PAST MEDICAL HISTORY: Significant for C. diff infection in the past. History of COPD, history of dementia. SOCIAL HISTORY: History of smoking in the past. REVIEW OF SYSTEMS: Unable to obtain because of the patient's condition. PHYSICAL EXAMINATION: GENERAL: The patient is intubated, but responsive. VITAL SIGNS: Temperature 96.2, pulse is 69, respiration is 19 with the vent, blood pressure last one was given by the nurse was 84/55, saturation 100%. HEENT: Atraumatic, normocephalic. Pupils equal and reactive to light and accommodation. Ears, nose and throat normal. NECK: Supple. No JVD. CHEST: There are a few rhonchi bilaterally. HEART: Regular rhythm. ABDOMEN: Soft. EXTREMITIES: No edema. LABORATORY DATA: hemoglobin is 17.6, hematocrit 53.3, platelets is 356. Sodium 131, potassium 4.5, BUN 31, creatinine 1.5. Lactic acid is 14.8. IMPRESSION: This is an 88-year-old male with respiratory failure, most likely secondary to sepsis, C. diff colitis came back positive with septic shock and severe infection. PLAN: 1. Ventilator support. 2. Bolus with IV fluids. 3. Bicarb, 4% bicarb drip. 4. Add second pressor. 5. Very poor prognosis at this time. I discussed with the family at bedside in details. We will follow the patient with you. Thank you very much for this consultation. JOB# [id number] MTDD
--- NOTE | 2018-04-24 20:44 | Consultation ---
DATE OF CONSULTATION: 04/23/2018 PRIMARY CARE PHYSICIAN: Dr. Wilson. REASON FOR CONSULTATION: Diarrhea, rectal pain. HISTORY OF PRESENT ILLNESS: This is an 88-year-old male who was recently discharged from [facility] now comes to the Emergency Room at [facility] with rectal pain, diarrhea, tenesmus and severe pain in the rectum. The patient was evaluated in ER, admitted to the hospital. The patient was also found to have leukocytosis. Infectious disease consultation was called for further treatment. The patient denies any blood in the stool. GI consultation was requested. The patient's stool test was sent and the patient empirically started on IV vancomycin for his toe infection. PAST MEDICAL HISTORY: Hypertension, peripheral vascular disease. PAST SURGICAL HISTORY: Cholecystectomy. The patient already received DTaP 2017. REVIEW OF SYSTEMS: A 14-point review of system negative except above. ALLERGIES: None. SOCIAL HISTORY: Nonsmoker. PHYSICAL EXAMINATION: GENERAL: The patient is an elderly male with the following vital signs. VITAL SIGNS: Temperature is 97.4, pulse 79, respirations 18, blood pressure 128/67. HEENT: Mild pallor, no icterus or plaque. NECK: Supple. LUNGS: Breath sounds bilaterally. CARDIOVASCULAR: S1. ABDOMEN: Soft, bowel sounds. LYMPHTIC: No cervical lymph nodes. SKIN: Fungal rash in the perineal area. LABORATORY DATA: White count is 22,000, hemoglobin is 13 grams, platelets 463. Creatinine 0.5. DIAGNOSES: 1. Leukocytosis, great toe infection, rule out Clostridium difficile. The patient in the process of correction of stool aspirate. 2. Great toe infection, vancomycin IV. 3. Hypertension. Restart home medication. 4. Rectal pain, hydrocortisone, GI consult and Dilaudid. 5. Zofran for nausea. Rest of the care as ordered in CPOE. Thank you Dr. Wilson for this consultation. JOB# [id number]
[2018-04-24] MEDS ORDERED: metroNIDAZOLE 500mg/NS 100mL 500 MG/100 ML BAG IV SCH (21:00)
--- NOTE | 2018-04-25 08:37 | Diagnostic Imaging Report ---
Exam: Portable chest x-ray HISTORY: Intubation. Prior exam: None. Findings: Portable supine examination of the chest at 1822 hours reviewed. The study demonstrates endotracheal tube 3.6 cm above the dasia. There is evidence of right basal peribronchial infiltrate. The costophrenic angles are clear bony thorax intact. Mediastinal structures midline the aortic arch calcified. IMPRESSION: Endotracheal tube 3.6 cm above the dasia Right basilar infiltrate. Follow-up examination recommended.
--- NOTE | 2018-04-29 01:33 | Discharge Summary ---
DATE OF DISCHARGE: 04/24/2018 HOSPITAL COURSE: The patient was admitted to [facility] on 04/22. The patient on 04/24. 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 The patient was admitted because of the severe pain, hematochezia, and history of rectal bleeding. The patient deteriorated quickly and the patient on 04/24. The patient severe peripheral vascular disease, history of angioplasty of left lower leg. JOB# [id number]
== END 2018-04-24 22:05 | disposition expired | DRG 871 ==
LOC: ER 15:18 → MSI 16:55 → TELE 17:04 → ICU 04-24 16:28
PROVIDERS: ADMIT Internal Medicine; ATTEND Internal Medicine
PROC: 5A09357 Assistance with Respiratory Ventilation, Less than 24 Consecutive Hours, Continuous Positive Airway Pressure (ICD-10-PCS; principal; 2018-04-24)
PROC: 5A1935Z Respiratory Ventilation, Less than 24 Consecutive Hours (ICD-10-PCS; 2018-04-24)
PROC: 0BH17EZ Insertion of Endotracheal Airway into Trachea, Via Natural or Artificial Opening (ICD-10-PCS; 2018-04-24)
PROC: 5A12012 Performance of Cardiac Output, Single, Manual (ICD-10-PCS; 2018-04-24)
DX: A41.9 Sepsis, unspecified organism (principal); R65.21 Severe sepsis with septic shock; J96.91 Respiratory failure, unspecified with hypoxia; K56.7 Ileus, unspecified; A04.72 Enterocolitis due to Clostridium difficile, not specified as recurrent; K92.1 Melena; K92.2 Gastrointestinal hemorrhage, unspecified; I10 Essential (primary) hypertension; K21.9 Gastro-esophageal reflux disease without esophagitis; K64.4 Residual hemorrhoidal skin tags; I73.9 Peripheral vascular disease, unspecified; J44.9 Chronic obstructive pulmonary disease, unspecified; K56.41 Fecal impaction; Z90.49 Acquired absence of other specified parts of digestive tract; Z82.49 Family history of ischemic heart disease and other diseases of the circulatory system; Z87.11 Personal history of peptic ulcer disease
CPT/HCPCS: 36415-UA; 36600-90; 71045-TC; 74000-TC; 80048-TC; 80053-TC; 80061-TC; 80202-TC; 82150-TC; 82550-TC; 82803-TC; 83036-90; 83605; 83690-TC; 83880-TC; 84484-TC; 85007-TC; 85025-TC; 85610-TC; 85730-TC; 87230-TC; 90779; 90799; 92950; 93005; 93925-TC; 93970-TC-50; 94002; 94640; 94660; 94760; 96374; J0171; J1170; J2270; J2405; J2760; J3370; J3480; J7030; J7042; J7070; X6452; Z7610